=== PATIENT | male | born 1990 | race Caucasian/White ===

== ENCOUNTER 2020-01-16 17:22 | Emergency (ER) | payer MEDICAID ==
[2020-01-16 17:59] LABS: BASOPHILS % (AUTO) 0.4 % (0.0-5.0); EOSINOPHILS % (AUTO) 2.3 % (0.0-8.0); HEMATOCRIT 47.7 % (42-54); LYMPHOCYTES % (AUTO) 16.1 % (21.0-51.0); MEAN CORPUSCULAR HEMOGLOBIN 30.2 pg (27.0-33.0); MEAN CORPUSCULAR HGB CONC 34.2 g/dL (32.0-36.0); MEAN CORPUSCULAR VOLUME 88.3 fL (79-99); NEUTROPHILS % (AUTO) 75.9 % (40.0-77.0); PLATELET COUNT (AUTO) 247 K/uL (130-400); RED CELL DISTRIBUTION WIDTH 12.9 % (11.0-15.5); WHITE BLOOD COUNT (AUTO) 19.3 K/uL (4.8-10.8)
[2020-01-16 18:07] LABS: CREATININE 1.2 mg/dL (0.5-1.5); POTASSIUM 3.7 mmol/L (3.5-5.1)
[2020-01-16] MEDS ORDERED: KETOROLAC TROMETHAMINE 30MG/ML ONE (18:24)
[2020-01-16] MEDS ORDERED: DIAZEPAM 5 MG/ML 2 ML SYG ONE (18:25)
== END 2020-01-16 20:13 | disposition home or self-care (01) ==
LOC: EDH 17:22
DX: M62.838 Other muscle spasm (principal); Z90.49 Acquired absence of other specified parts of digestive tract; Z72.0 Tobacco use
CPT/HCPCS: 36415; 72040; 80048; 85025; 87804 ×2; 96374; 96375; 99284; J1885; J3360

== ENCOUNTER 2022-01-22 05:15 | Emergency (ER) | payer MEDICAID ==
[~2022-01-22] VITALS: Ht 182.9 cm; Wt 94.8 kg
[2022-01-22 05:33] VITALS: BP 122/92
[2022-01-22 05:39] LABS: BASOPHILS % (AUTO) 0.9 % (0.0-5.0); EOSINOPHILS % (AUTO) 9.5 % (0.0-8.0); HEMATOCRIT 44.3 % (42-54); LYMPHOCYTES % (AUTO) 29.1 % (21.0-51.0); MEAN CORPUSCULAR HEMOGLOBIN 30.9 pg (27.0-33.0); MEAN CORPUSCULAR VOLUME 88.4 fL (79-99); MONOCYTES % (AUTO) 6.2 % (3.0-13.0); PLATELET COUNT (AUTO) 225 K/uL (130-400); RED BLOOD CELL COUNT(AUTO) 5.01 MIL/uL (4.50-6.20); RED CELL DISTRIBUTION WIDTH 13.2 % (11.0-15.5); WHITE BLOOD COUNT (AUTO) 11.6 K/uL (4.8-10.8)
[2022-01-22 05:45] LABS: ABG BASE EXCESS -0.9 mmol/L (-2.0-3.0); ABG HCO3 23.2 mmol/L (21.0-28.0); ABG OXYGEN SATURATION 95.6 % (95.0-99.0); ABG PCO2 37 mmHg (35-48)
[2022-01-22 05:51] LABS: CREATININE 0.9 mg/dL (0.5-1.5); POTASSIUM 3.7 mmol/L (3.5-5.1)
[2022-01-22] MEDS ORDERED: GUAIFENESIN-CODEINE 5 ML SYRUP ONE (05:51)
[2022-01-22 05:55] LABS: ALBUMIN 3.9 g/dL (3.5-5.0); BILIRUBIN,TOTAL 0.4 mg/dL (0.2-1.0); MAGNESIUM 1.8 mg/dL (1.80-2.40); TOTAL PROTEIN, SERUM 7.1 g/dL (6.0-8.3)
[2022-01-22] MEDS ORDERED: SOLU-MEDROL 125MG VIAL IVP ONE (06:00)
[2022-01-22] MEDS ORDERED: GUAIFENESIN-CODEINE 5 ML SYRUP PO ONE (06:00)
[2022-01-22 06:04] LABS: B-TYPE NATRIURETIC PEPTIDE 9 pg/mL (0-100)
[2022-01-22] MEDS ORDERED: AZIT250T PO (06:49)
[2022-01-22] MEDS ORDERED: PRED20TA3 PO (06:49)
[2022-01-22] MEDS ORDERED: AZITHROMYCIN 250 MG TABLET PO SCH (07:00)
[2022-01-22] MEDS ORDERED: AZITHROMYCIN 250 MG TABLET PO ONE (07:08)
== END 2022-01-22 07:05 | disposition home or self-care (01) ==
LOC: EDH 05:15
DX: J20.9 Acute bronchitis, unspecified (principal); J44.0 Chronic obstructive pulmonary disease with (acute) lower respiratory infection; Z79.52 Long term (current) use of systemic steroids; Z90.49 Acquired absence of other specified parts of digestive tract; Z20.822 Contact with and (suspected) exposure to COVID-19
CPT/HCPCS: 36415; 36600; 71045; 80053; 82435; 82550; 82803; 82947; 83605; 83735; 83880; 84132; 84295; 84484; 85018; 85025; 87635; 87804 ×2; 93005; 96374; 99285; C9803; J2930

== ENCOUNTER 2023-07-01 09:29 | Inpatient (IN) | payer OTHER ==
[~2023-07-01] VITALS: Ht 182.9 cm; Wt 95.3 kg
[2023-07-01] VITALS (28 sets, daily range): BP systolic 98–121; BP diastolic 49–77; PULSE 104–131; RESP 12–34; O2SAT 78–100
[~2023-07-01 09:29] MED LIST: AZIT250T PO; PRED20TA3 PO
[2023-07-01 10:08] LABS: MEAN CORPUSCULAR HEMOGLOBIN 31.1 pg (27.0-33.0); MEAN CORPUSCULAR HGB CONC 34.5 g/dL (32.0-36.0); MEAN CORPUSCULAR VOLUME 90.2 fL (79-99); RED BLOOD CELL COUNT(AUTO) 5.21 MIL/uL (4.50-6.20); RED CELL DISTRIBUTION WIDTH 13.2 % (11.0-15.5); WHITE BLOOD COUNT (AUTO) 11.3 K/uL (4.8-10.8)
[2023-07-01] MEDS ORDERED: EPINEPHRINE PF 1MG (1:1,000) 1 MG/ML AMP ONE (10:23)
[2023-07-01 10:25] LABS: ALBUMIN 3.8 g/dL (3.5-5.0); BILIRUBIN,TOTAL 0.7 mg/dL (0.2-1.0); TOTAL PROTEIN, SERUM 7.5 g/dL (6.0-8.3)
[2023-07-01] MEDS ORDERED: DiphenhydrAMINE HCL 50 MG/ML VIAL ONE (10:25)
[2023-07-01] MEDS ORDERED: IPRATROPIUM/ALBUTEROL SULFATE 3 ML SOLUTION IH ONE ×2 (10:30→11:00)
[2023-07-01] MEDS ORDERED: SOLU-MEDROL 125MG VIAL IVP ONE (10:30)
[2023-07-01 10:38] LABS: ABG BASE EXCESS -12.2 mmol/L (-2.0-3.0); ABG HCO3 19.3 mmol/L (21.0-28.0); ABG OXYGEN SATURATION 99.1 % (95.0-99.0); ABG PCO2 71 mmHg (35-48); ABG PH 7.056 (7.350-7.450); PO2, ARTERIAL BG 239.3 mmHg (83.0-108.0); VENT MODE, BG BIPAP 14-6 (ROOM AIR)
[2023-07-01] MEDS: 0.9%NACL 1000ML 1,000 ML IV SCH ×4 (10:47→15:57)
[2023-07-01] MEDS ORDERED: MAGNESIUM 2GM PREMIX 50ML 50 ML IV ONE (11:00)
[2023-07-01] MEDS ORDERED: DiphenhydrAMINE HCL 50 MG/ML VIAL IV ONE (11:00)
[2023-07-01] MEDS ORDERED: EPINEPHRINE PF 1MG (1:1,000) 1 MG/ML AMP IM ONE (11:00)
[2023-07-01] MEDS ORDERED: FAMOTIDINE 20MG VIAL IV ONE (11:00)
[2023-07-01 11:19] LABS: SARS-CoV-2, RNA, NAAT NEGATIVE SARS CoV-2 (NEGATIVE)
[2023-07-01 11:25] LABS: INFLUENZA TYPE A Negative For Type A (NEGATIVE); INFLUENZA TYPE B Negative For Type B (NEGATIVE)
[2023-07-01 11:34] LABS: ABG BASE EXCESS -2.2 mmol/L (-2.0-3.0); ABG HCO3 23.6 mmol/L (21.0-28.0); ABG OXYGEN SATURATION 99.9 % (95.0-99.0); ABG PCO2 45 mmHg (35-48); ABG PH 7.343 (7.350-7.450); PO2, ARTERIAL BG > 500.0 mmHg (83.0-108.0); VENT MODE, BG BIPAP 14-6 (ROOM AIR)
[2023-07-01] MEDS: ONDANSETRON 4MG INJ ONE ×2 (11:48→11:50)
[2023-07-01] MEDS ORDERED: CEFTRIAXONE 1G VIAL IVPB ONE (12:00)
[2023-07-01] MEDS ORDERED: AZITHROMYCIN 500MG+NS 250ML 250 ML IVPB ONE (12:00)
[2023-07-01] MEDS ORDERED: BUDESONIDE 0.5 MG/2 ML INH IH SCH (12:30)
[2023-07-01] MEDS ORDERED: ONDANSETRON 4MG INJ IVP PRN ×2 (13:00→13:30)
[2023-07-01] MEDS ORDERED: IPRATROPIUM/ALBUTEROL SULFATE 3 ML SOLUTION IH PRN (13:00)
[2023-07-01] MEDS ORDERED: SOLU-MEDROL 40MG VIAL IVP SCH (13:30)
[2023-07-01 13:35] LABS: INR 0.94 (0.85-1.15); PROTHROMBIN TIME 10.9 SEC (9.6-11.6)
[2023-07-01 13:37] LABS: PARTIAL THROMBOPLASTIN TIME 27.2 SEC (26.3-35.5)
[2023-07-01 13:42] LABS: CREATINE KINASE, TOTAL 289 U/L (21-232)
[2023-07-01] MEDS: BUDESONIDE 0.5 MG/2 ML INH IH SCH ×2 (13:54→18:42)
[2023-07-01] MEDS: IPRATROPIUM/ALBUTEROL SULFATE 3 ML SOLUTION IH SCH ×4 (13:54→23:03)
[2023-07-01] MEDS: SOLU-MEDROL 40MG VIAL IVP SCH ×2 (14:46→20:53)
[2023-07-01 18:26] LABS: APPEARANCE,URINE CLEAR (CLEAR); BILIRUBIN,URINE NEGATIVE (NEGATIVE); COLOR,URINE LIGHT-YELLOW (YELLOW); GLUCOSE, URINE (UA) NEGATIVE (NEGATIVE); KETONES,URINE NEGATIVE (NEGATIVE); LEUKOCYTE ESTERASE ,URINE NEGATIVE Leu/uL (NEGATIVE); NITRATE,URINE NEGATIVE (NEGATIVE); PH,URINE 5.5 (5.0-8.0); PROTEIN,URINE 30 mg/dL (NEGATIVE); UROBILINOGEN,URINE 0.2 mg/dL (0.2-1.0)
[2023-07-01 18:31] LABS: ADD UA MICROSCOPIC YES
[2023-07-01 18:32] LABS: AMPHET/METH SCREEN,URINE NEGATIVE (NEGATIVE); BARBITURATE SCREEN, URINE NEGATIVE (NEGATIVE); BENZODIAZEPINES SCREEN,URINE NEGATIVE (NEGATIVE); CANNABINOID SCREEN,URINE NEGATIVE (NEGATIVE); COCAINE SCREEN,URINE NEGATIVE (NEGATIVE); OPIATE SCREEN,URINE NEGATIVE (NEGATIVE); PHENCYCLIDINE SCREEN,URINE NEGATIVE (NEGATIVE)
[2023-07-01 18:33] LABS: MUCUS,URINE RARE LPF (None Seen); WBC,URINE 0-1 /HPF (0-1)
[2023-07-01] MEDS ORDERED: IPRA3AMP24 IH (19:23)
[2023-07-01] MEDS ORDERED: ALBU6.7H14 IH (19:23)
[2023-07-01] MEDS: FAMOTIDINE 20MG VIAL IV SCH (20:52)
[2023-07-01] MEDS: CEFTRIAXONE 2GM VIAL IVPB SCH (20:53)
[2023-07-01] MEDS ORDERED: CEFTRIAXONE 1G VIAL IVPB SCH (21:00)
[2023-07-02] VITALS (28 sets, daily range): BP systolic 111–139; BP diastolic 49–86; PULSE 95–130; RESP 14–29; O2SAT 95–98
[2023-07-02] MEDS: GUAIFENESIN-DM 200/20 MG 10 ML PO PRN ×2 (01:19→09:23)
[2023-07-02] MEDS: IPRATROPIUM/ALBUTEROL SULFATE 3 ML SOLUTION IH SCH ×4 (01:48→13:45)
[2023-07-02] MEDS: SOLU-MEDROL 40MG VIAL IVP SCH ×3 (02:58→17:11)
[2023-07-02] MEDS: BENZONATATE 100 MG CAPSULE PO SCH ×4 (03:30→21:01)
[2023-07-02] MEDS ORDERED: BENZONATATE 100 MG CAPSULE PO ONE (03:32)
[2023-07-02 04:43] LABS: BASOPHILS # (AUTO) 0.03 K/uL (0.00-0.20); BASOPHILS % (AUTO) 0.2 % (0.0-5.0); HEMATOCRIT 42.6 % (42-54); IMMATURE GRANULOCYTE ABSOLUTE 0.11 K/uL (0-1); LYMPHOCYTES # (AUTO) 0.9 K/uL (1.0-4.8); LYMPHOCYTES % (AUTO) 4.8 % (21.0-51.0); MEAN CORPUSCULAR HEMOGLOBIN 31.5 pg (27.0-33.0); MEAN CORPUSCULAR HGB CONC 33.8 g/dL (32.0-36.0); MEAN CORPUSCULAR VOLUME 93.2 fL (79-99); MONOCYTES # (AUTO) 0.4 K/uL (0.1-1.0); MONOCYTES % (AUTO) 2.1 % (3.0-13.0); NEUTROPHILS # (AUTO) 17.5 K/uL (1.8-7.7); NEUTROPHILS % (AUTO) 92.3 % (40.0-77.0); PLATELET COUNT (AUTO) 239 K/uL (130-400); RED BLOOD CELL COUNT(AUTO) 4.57 MIL/uL (4.50-6.20); RED CELL DISTRIBUTION WIDTH 13.2 % (11.0-15.5)
[2023-07-02 05:22] LABS: ALBUMIN 3.1 g/dL (3.5-5.0); BILIRUBIN,DIRECT 0.1 mg/dL (0.0-0.3); BILIRUBIN,TOTAL 0.3 mg/dL (0.2-1.0); CREATININE 1.1 mg/dL (0.5-1.5); POTASSIUM 4.1 mmol/L (3.5-5.1); TOTAL PROTEIN, SERUM 6.5 g/dL (6.0-8.3)
[2023-07-02] MEDS: BUDESONIDE 0.5 MG/2 ML INH IH SCH ×2 (06:10→19:01)
[2023-07-02 06:17] LABS: WBC MORPHOLOGY CONSISTENT W/DIFF
[2023-07-02] MEDS: AZITHROMYCIN 250 MG TABLET PO SCH (09:25)
[2023-07-02] MEDS: CETIRIZINE HCL 5 MG TABLET PO SCH (09:25)
[2023-07-02] MEDS: FAMOTIDINE 20MG VIAL IV SCH (09:25)
[2023-07-02] MEDS: MONTELUKAST SODIUM 10 MG TAB PO SCH (09:25)
[2023-07-02] MEDS: 0.9%NACL 1000ML 1,000 ML IV SCH ×2 (09:27→09:35)
[2023-07-02] MEDS: ENOXAPARIN SODIUM 40 MG/0.4 ML SYRINGE SQ SCH (09:30)
[2023-07-02] MEDS ORDERED: IPRATROPIUM 0.5 MG/2.5 ML INH IH PRN (18:00)
[2023-07-02] MEDS ORDERED: ONDANSETRON 4MG TABLET PO PRN (19:00)
[2023-07-02] MEDS: IPRATROPIUM 0.5 MG/2.5 ML INH IH SCH ×2 (19:01→23:17)
[2023-07-02] MEDS: FAMOTIDINE 20MG TAB PO SCH (21:01)
[2023-07-02] MEDS: CEFTRIAXONE 2GM VIAL IVPB SCH (21:01)
[2023-07-03] VITALS (21 sets, daily range): BP systolic 100–127; BP diastolic 53–97; PULSE 64–104; RESP 17–23; O2SAT 92–96
[2023-07-03] MEDS: SOLU-MEDROL 40MG VIAL IVP SCH ×3 (02:59→17:47)
[2023-07-03] MEDS: IPRATROPIUM 0.5 MG/2.5 ML INH IH SCH ×6 (03:25→21:25)
[2023-07-03] MEDS: BUDESONIDE 0.5 MG/2 ML INH IH SCH ×2 (06:20→18:59)
[2023-07-03] MEDS: BENZONATATE 100 MG CAPSULE PO SCH ×3 (10:25→21:18)
[2023-07-03] MEDS: CETIRIZINE HCL 5 MG TABLET PO SCH (10:25)
[2023-07-03] MEDS: AZITHROMYCIN 250 MG TABLET PO SCH (10:26)
[2023-07-03] MEDS: MONTELUKAST SODIUM 10 MG TAB PO SCH (10:26)
[2023-07-03] MEDS: FAMOTIDINE 20MG TAB PO SCH ×2 (10:26→21:18)
[2023-07-03] MEDS: ENOXAPARIN SODIUM 40 MG/0.4 ML SYRINGE SQ SCH (10:27)
[2023-07-03] MEDS: GUAIFENESIN-DM 200/20 MG 10 ML PO PRN ×2 (17:47→23:30)
[2023-07-03] MEDS: CEFTRIAXONE 2GM VIAL IVPB SCH (21:19)
[2023-07-04] VITALS (11 sets, daily range): BP systolic 118–126; BP diastolic 23–76; PULSE 71–96; RESP 18–20; O2SAT 93–98
[2023-07-04] MEDS: SOLU-MEDROL 40MG VIAL IVP SCH ×2 (00:09→09:32)
[2023-07-04] MEDS: IPRATROPIUM 0.5 MG/2.5 ML INH IH SCH ×4 (01:57→13:33)
[2023-07-04] MEDS: BUDESONIDE 0.5 MG/2 ML INH IH SCH (06:46)
[2023-07-04] MEDS: FAMOTIDINE 20MG TAB PO SCH (09:31)
[2023-07-04] MEDS: ENOXAPARIN SODIUM 40 MG/0.4 ML SYRINGE SQ SCH (09:31)
[2023-07-04] MEDS: AZITHROMYCIN 250 MG TABLET PO SCH (09:31)
[2023-07-04] MEDS: MONTELUKAST SODIUM 10 MG TAB PO SCH (09:31)
[2023-07-04] MEDS: BENZONATATE 100 MG CAPSULE PO SCH ×2 (09:31→14:24)
[2023-07-04] MEDS: CETIRIZINE HCL 5 MG TABLET PO SCH (09:32)
[2023-07-04] MEDS ORDERED: ACETAMINOPHEN 325 MG TAB PO PRN (13:30)
== END 2023-07-04 16:40 | disposition left against medical advice (07) | DRG 871 ==
LOC: EDH 09:29 → EDHIP 12:18 → 2CH 14:59 → 3DH 07-03 08:22
PROVIDERS: ADMIT Internal Medicine; ATTEND Internal Medicine
PROC: 5A09357 Assistance with Respiratory Ventilation, Less than 24 Consecutive Hours, Continuous Positive Airway Pressure (ICD-10-PCS; principal; 2023-07-01)
DX: A41.9 Sepsis, unspecified organism (principal); J96.01 Acute respiratory failure with hypoxia; J96.02 Acute respiratory failure with hypercapnia; J45.52 Severe persistent asthma with status asthmaticus; J44.1 Chronic obstructive pulmonary disease with (acute) exacerbation; E87.29 Other acidosis; Z20.822 Contact with and (suspected) exposure to COVID-19; F17.210 Nicotine dependence, cigarettes, uncomplicated; E86.0 Dehydration; Z90.49 Acquired absence of other specified parts of digestive tract
CPT/HCPCS: 36415; 36600; 71045; 80048; 80053; 80076; 80305; 81001; 82103; 82550; 82803; 83605; 83735; 84145; 84484; 85025; 85027; 85378; 85610; 85651; 85730; 86140; 87040; 87635; 87798; 87804; 93005; 94640; 94660; 94664; C9803; G0378; J0171; J0456; J0696; J1200; J1650; J2405; J2920; J2930; J3475; J3490

== ENCOUNTER 2023-10-10 06:07 | Inpatient (IN) | payer OTHER ==
[2023-10-10] VITALS (65 sets, daily range): BP systolic 89–148; BP diastolic 51–95; PULSE 94–146; RESP 17–66; O2SAT 94–100
[~2023-10-10] VITALS: Ht 182.9 cm; Wt 90.0 kg
[~2023-10-10 06:07] MED LIST changes: +ALBU6.7H14 IH; +IPRA3AMP24 IH
[2023-10-10 06:26] LABS: BASOPHILS # (AUTO) 0.07 K/uL (0.00-0.20); BASOPHILS % (AUTO) 0.5 % (0.0-5.0); EOSINOPHILS # (AUTO) 0.11 K/uL (0.00-0.70); EOSINOPHILS % (AUTO) 0.8 % (0.0-8.0); HEMATOCRIT 42.7 % (42-54); IMMATURE GRANULOCYTE ABSOLUTE 0.07 K/uL (0-1); LYMPHOCYTES # (AUTO) 0.5 K/uL (1.0-4.8); LYMPHOCYTES % (AUTO) 3.9 % (21.0-51.0); MEAN CORPUSCULAR HEMOGLOBIN 30.7 pg (27.0-33.0); MEAN CORPUSCULAR HGB CONC 34.7 g/dL (32.0-36.0); MEAN CORPUSCULAR VOLUME 88.6 fL (79-99); MONOCYTES # (AUTO) 0.9 K/uL (0.1-1.0); MONOCYTES % (AUTO) 6.3 % (3.0-13.0); PLATELET COUNT (AUTO) 235 K/uL (130-400); RED BLOOD CELL COUNT(AUTO) 4.82 MIL/uL (4.50-6.20); RED CELL DISTRIBUTION WIDTH 13.3 % (11.0-15.5); WHITE BLOOD COUNT (AUTO) 13.6 K/uL (4.8-10.8)
[2023-10-10] MEDS: SOLU-MEDROL 125MG VIAL IVP ONE (06:30)
[2023-10-10] MEDS: ASPIRIN 325MG TAB PO ONE (06:30)
[2023-10-10] MEDS ORDERED: MAGNESIUM 2GM PREMIX 50ML 50 ML IV SCH (06:30)
[2023-10-10] MEDS: NITROGLYCERIN 1GM OINT 1 INCH/1GM TD ONE (06:30)
[2023-10-10] MEDS: ENOXAPARIN SODIUM 40 MG/0.4 ML SYRINGE SQ ONE (06:30)
[2023-10-10] MEDS: IPRATROPIUM/ALBUTEROL SULFATE 3 ML SOLUTION IH ONE (06:39)
[2023-10-10 06:44] LABS: RAPID GROUP A STREP negative (NEGATIVE)
[2023-10-10 06:47] LABS: ABG BASE EXCESS -1.3 mmol/L (-2.0-3.0); ABG HCO3 22.8 mmol/L (21.0-28.0); ABG OXYGEN SATURATION 97.3 % (95.0-99.0); ABG PCO2 37 mmHg (35-48); ABG PH 7.412 (7.350-7.450); PO2, ARTERIAL BG 94.3 mmHg (83.0-108.0); VENT MODE, BG MASK (ROOM AIR)
[2023-10-10 06:52] LABS: SARS-CoV-2, RNA, NAAT NEGATIVE SARS CoV-2 (NEGATIVE)
[2023-10-10 06:54] LABS: INFLUENZA TYPE B Negative For Type B (NEGATIVE)
[2023-10-10 06:56] LABS: ALBUMIN 3.8 g/dL (3.5-5.0); BILIRUBIN,TOTAL 0.5 mg/dL (0.2-1.0); CREATININE 1.1 mg/dL (0.5-1.5); POTASSIUM 3.6 mmol/L (3.5-5.1); TOTAL PROTEIN, SERUM 7.4 g/dL (6.0-8.3)
[2023-10-10 07:22] LABS: INFLUENZA TYPE A Positive For Type A (NEGATIVE)
[2023-10-10] MEDS: ALBUTEROL 0.083% 2.5 MG/3 ML INH IH ONE ×4 (07:26→07:50)
[2023-10-10] MEDS ORDERED: ALBUTEROL 0.083% 2.5 MG/3 ML INH IH ONE ×2 (07:30)
[2023-10-10] MEDS: IBUPROFEN 600 MG TABLET PO ONE (07:31)
[2023-10-10 07:36] LABS: B-TYPE NATRIURETIC PEPTIDE 9 pg/mL (0-100)
[2023-10-10 08:27] LABS: ABG HCO3 22.5 mmol/L (21.0-28.0); ABG OXYGEN SATURATION 98.9 % (95.0-99.0); ABG PCO2 42 mmHg (35-48); ABG PH 7.349 (7.350-7.450); HHb 1.1; PO2, ARTERIAL BG 151.6 mmHg (83.0-108.0); VENT MODE, BG BIPAP 14-7 (ROOM AIR)
[2023-10-10] MEDS: LORAZEPAM 2 MG/ML 1 ML VIAL IVP ONE (09:02)
[2023-10-10 09:21] LABS: APPEARANCE,URINE CLEAR (CLEAR); BILIRUBIN,URINE NEGATIVE (NEGATIVE); COLOR,URINE YELLOW (YELLOW); GLUCOSE, URINE (UA) NEGATIVE (NEGATIVE); KETONES,URINE NEGATIVE (NEGATIVE); LEUKOCYTE ESTERASE ,URINE NEGATIVE Leu/uL (NEGATIVE); NITRATE,URINE NEGATIVE (NEGATIVE); OCCULT BLOOD,URINE SMALL (NEGATIVE); PH,URINE 5.5 (5.0-8.0); PROTEIN,URINE NEGATIVE (NEGATIVE); UROBILINOGEN,URINE 0.2 mg/dL (0.2-1.0)
[2023-10-10] MEDS: SOLU-MEDROL 125MG VIAL IVP SCH (09:30)
[2023-10-10 09:34] LABS: ADD UA MICROSCOPIC YES
[2023-10-10 09:37] LABS: BACTERIA,URINE None Seen /HPF (None Seen); WBC,URINE 0-1 /HPF (0-1)
[2023-10-10] MEDS: AZITHROMYCIN 500MG+NS 250ML 250 ML IVPB SCH (10:22)
[2023-10-10] MEDS: LACTATED RINGERS 1000ML 1,000 ML IV SCH (10:22)
[2023-10-10] MEDS: DEXMEDETOMIDINE 400MCG/NS100ML IV SCH (11:02)
[2023-10-10] MEDS: IPRATROPIUM/ALBUTEROL SULFATE 3 ML SOLUTION IH SCH (11:31)
[2023-10-10] MEDS ORDERED: IPRATROPIUM/ALBUTEROL SULFATE 3 ML SOLUTION IH SCH (12:00)
[2023-10-10 12:51] LABS: AMPHET/METH SCREEN,URINE NEGATIVE (NEGATIVE); BARBITURATE SCREEN, URINE NEGATIVE (NEGATIVE); BENZODIAZEPINES SCREEN,URINE NEGATIVE (NEGATIVE); CANNABINOID SCREEN,URINE NEGATIVE (NEGATIVE); COCAINE SCREEN,URINE NEGATIVE (NEGATIVE); OPIATE SCREEN,URINE NEGATIVE (NEGATIVE); PHENCYCLIDINE SCREEN,URINE NEGATIVE (NEGATIVE)
[2023-10-10] MEDS: MORPHINE 2 MG SYG IVP PRN (12:58)
[2023-10-10] MEDS: ZOSYN 3.375GM +NS 50ML IV SCH (12:58)
[2023-10-10] MEDS: SOLU-MEDROL 40MG VIAL IVP SCH (12:58)
[2023-10-10] MEDS: MIDAZOLAM HCL 1 MG/ML 2ML VIAL ONE (13:16)
[2023-10-10] MEDS: MIDAZOLAM HCL 1 MG/ML 2ML VIAL IVP STA (13:16)
[2023-10-10] MEDS: MIDAZOLAM 50MG-0.9% NS 50ML 50 ML IV SCH ×2 (13:29→19:57)
[2023-10-10] MEDS ORDERED: MIDAZOLAM HCL 50 MG in 0.9%NACL 50ML 50 ML IV SCH (13:30)
[2023-10-10 14:01] LABS: ABG BASE EXCESS -6.3 mmol/L (-2.0-3.0); ABG HCO3 23.6 mmol/L (21.0-28.0); ABG OXYGEN SATURATION 97.5 % (95.0-99.0); ABG PCO2 67 mmHg (35-48); ABG PH 7.165 (7.350-7.450); CARBON MONOXIDE 0.5; HHb 2.5; PO2, ARTERIAL BG 116.3 mmHg (83.0-108.0); VENT MODE, BG AC-VC (ROOM AIR)
[2023-10-10] MEDS: FENTANYL 2500MCG+NS 250ML 250 ML IV SCH (14:14)
[2023-10-10 16:30] LABS: ABG BASE EXCESS -6.7 mmol/L (-2.0-3.0); ABG HCO3 22.4 mmol/L (21.0-28.0); ABG OXYGEN SATURATION 98.7 % (95.0-99.0); ABG PCO2 60 mmHg (35-48); CARBON MONOXIDE 0.4; HHb 1.3; PO2, ARTERIAL BG 150.9 mmHg (83.0-108.0); VENT MODE, BG PC-AC IP28 (ROOM AIR)
[2023-10-10] MEDS: SODIUM BICARB 50MEQ 50ML VIAL IV SCH (17:00)
[2023-10-10] MEDS: SODIUM BICARB 50MEQ 50ML VIAL 100 ML ONE (17:03)
[2023-10-10 17:38] LABS: ALBUMIN 3.3 g/dL (3.5-5.0); BILIRUBIN,TOTAL 0.4 mg/dL (0.2-1.0); CREATININE 1.2 mg/dL (0.5-1.5); TOTAL PROTEIN, SERUM 6.4 g/dL (6.0-8.3)
[2023-10-10 17:43] LABS: POTASSIUM 6.5 mmol/L (3.5-5.1)
[2023-10-10] MEDS: KAYEXALATE 15GM/60ML NG ONE (18:25)
[2023-10-10] MEDS: DEXTROSE 50%-WATER 50 ML DISP.SYRIN IV ONE (18:25)
[2023-10-10] MEDS: INSULIN HUMULIN R 100 UNIT/ML 3ML IV ONE (18:26)
[2023-10-10] MEDS: BUDESONIDE 0.5 MG/2 ML INH IH SCH (18:41)
[2023-10-10 18:49] LABS: ABG BASE EXCESS -0.1 mmol/L (-2.0-3.0); ABG HCO3 29.6 mmol/L (21.0-28.0); ABG PCO2 73 mmHg (35-48); ABG PH 7.224 (7.350-7.450); CARBON MONOXIDE 0.4; DEVICE COMMENT RN,AL; PO2, ARTERIAL BG 102.4 mmHg (83.0-108.0); VENT MODE, BG PC 25 (ROOM AIR)
[2023-10-10] MEDS: CALCIUM GLUC 1GM 1 GM in 0.9%NACL 100ML 100 ML IV SCH (18:56)
[2023-10-10 20:36] LABS: INR <= 0.93 (0.85-1.15); PROTHROMBIN TIME 10.6 SEC (9.6-11.6)
[2023-10-10 20:37] LABS: PARTIAL THROMBOPLASTIN TIME 23.7 SEC (26.3-35.5)
[2023-10-10] MEDS: ROCURONIUM BROMIDE 100 MG in 0.9%NACL 100ML 100 ML IV SCH (20:56)
[2023-10-10] MEDS: PANTOPRAZOLE 40 MG/VIAL IVP SCH (22:01)
[2023-10-10] MEDS: OSELTAMIVIR PHOSPHATE 75 MG CAP PO SCH (22:01)
[2023-10-10] MEDS: NACL 0.9% IV SCH (22:22)
[2023-10-10] MEDS: ROCURONIUM BROMIDE IV SCH (22:22)
[2023-10-10 22:29] LABS: ABG BASE EXCESS 0.7 mmol/L (-2.0-3.0); ABG HCO3 30.3 mmol/L (21.0-28.0); ABG OXYGEN SATURATION 99.5 % (95.0-99.0); ABG PCO2 73 mmHg (35-48); ABG PH 7.235 (7.350-7.450); CARBON MONOXIDE 0.4; HHb 0.5; VENT MODE, BG ACVC (ROOM AIR)
[2023-10-10] MEDS: KAYEXALATE 15GM/60ML PO SCH (23:20)
[2023-10-11] VITALS (107 sets, daily range): BP systolic 94–134; BP diastolic 53–77; PULSE 62–104; RESP 9–26; O2SAT 93–99
[2023-10-11] MEDS: PHENYLEPHRINE HCL 10 MG in 0.9% NACL 250ML 250 ML IV PRN (02:20)
[2023-10-11] MEDS ORDERED: PHENYLEPHRINE HCL 50 MG in 0.9% NACL 250ML 245 ML IV PRN (03:00)
[2023-10-11] MEDS ORDERED: NACL 0.9% IV PRN (03:00)
[2023-10-11] MEDS ORDERED: PHENYLEPHRINE HCL IV PRN (03:00)
[2023-10-11] MEDS: PHENYLEPHRINE HCL 10 MG/ML 5ML VIAL IV ONE ×2 (03:15)
[2023-10-11 03:24] LABS: ABG BASE EXCESS 2.8 mmol/L (-2.0-3.0); ABG HCO3 28.7 mmol/L (21.0-28.0); ABG OXYGEN SATURATION 99.6 % (95.0-99.0); ABG PCO2 49 mmHg (35-48); ABG PH 7.384 (7.350-7.450); CARBON MONOXIDE 0.3; HHb 0.4; PO2, ARTERIAL BG 409.2 mmHg (83.0-108.0); VENT MODE, BG ACVC (ROOM AIR)
[2023-10-11 05:21] LABS: BASOPHILS # (AUTO) 0.01 K/uL (0.00-0.20); BASOPHILS % (AUTO) 0.1 % (0.0-5.0); HEMATOCRIT 39.5 % (42-54); IMMATURE GRANULOCYTE ABSOLUTE 0.05 K/uL (0-1); LYMPHOCYTES # (AUTO) 0.5 K/uL (1.0-4.8); LYMPHOCYTES % (AUTO) 3.7 % (21.0-51.0); MEAN CORPUSCULAR HEMOGLOBIN 30.9 pg (27.0-33.0); MEAN CORPUSCULAR HGB CONC 32.9 g/dL (32.0-36.0); MEAN CORPUSCULAR VOLUME 93.8 fL (79-99); MONOCYTES # (AUTO) 0.8 K/uL (0.1-1.0); MONOCYTES % (AUTO) 5.4 % (3.0-13.0); NEUTROPHILS # (AUTO) 13.3 K/uL (1.8-7.7); NEUTROPHILS % (AUTO) 90.5 % (40.0-77.0); PLATELET COUNT (AUTO) 189 K/uL (130-400); RED BLOOD CELL COUNT(AUTO) 4.21 MIL/uL (4.50-6.20); RED CELL DISTRIBUTION WIDTH 13.7 % (11.0-15.5); WHITE BLOOD COUNT (AUTO) 14.7 K/uL (4.8-10.8)
[2023-10-11 05:22] LABS: CREATININE 1.1 mg/dL (0.5-1.5); POTASSIUM 4.5 mmol/L (3.5-5.1)
[2023-10-11] MEDS: 0.9%NACL 10ML VIAL IV SCH (08:20)
[2023-10-11 08:24] LABS: ABG BASE EXCESS 4.5 mmol/L (-2.0-3.0); ABG HCO3 28.9 mmol/L (21.0-28.0); ABG OXYGEN SATURATION 96.6 % (95.0-99.0); ABG PCO2 42 mmHg (35-48); ABG PH 7.453 (7.350-7.450); CARBON MONOXIDE 0.3; HHb 3.4; PO2, ARTERIAL BG 80.7 mmHg (83.0-108.0)
[2023-10-11] MEDS: PANTOPRAZOLE 40MG INJ 80 MG in 0.9%NACL 100ML 100 ML IV SCH (08:26)
[2023-10-11] MEDS: DEXTROSE 5 %-0.45 % NACL 1,000 ML IV SCH (08:26)
[2023-10-11] MEDS: OCTREOTIDE ACETATE 1,250 MCG in 0.9% NACL 250ML 250 ML IV SCH (08:34)
[2023-10-11] MEDS ORDERED: FAMOTIDINE 20MG VIAL IV SCH (09:00)
[2023-10-11] MEDS ORDERED: COMPOUND IV REFRIGERATED 1 EACH IVSOLN MISC PRN (11:30)
[2023-10-11 11:59] LABS: HEMATOCRIT 36.3 % (42-54)
[2023-10-11] MEDS: IPRATROPIUM/ALBUTEROL SULFATE 3 ML SOLUTION IH SCH (14:37)
[2023-10-11 16:13] LABS: HEMATOCRIT 35.6 % (42-54)
[2023-10-11 22:44] LABS: HEMATOCRIT 36.1 % (42-54)
[2023-10-12] VITALS (110 sets, daily range): BP systolic 111–171; BP diastolic 59–101; PULSE 49–89; RESP 11–31; O2SAT 92–100
[2023-10-12 03:09] LABS: HEMATOCRIT 36.3 % (42-54); MEAN CORPUSCULAR HEMOGLOBIN 30.9 pg (27.0-33.0); MEAN CORPUSCULAR HGB CONC 32.8 g/dL (32.0-36.0); MEAN CORPUSCULAR VOLUME 94.3 fL (79-99); RED BLOOD CELL COUNT(AUTO) 3.85 MIL/uL (4.50-6.20); RED CELL DISTRIBUTION WIDTH 13.8 % (11.0-15.5); WHITE BLOOD COUNT (AUTO) 11.7 K/uL (4.8-10.8)
[2023-10-12 03:27] LABS: ALBUMIN 2.6 g/dL (3.5-5.0); BILIRUBIN,TOTAL 0.3 mg/dL (0.2-1.0); MAGNESIUM 2.3 mg/dL (1.80-2.40); POTASSIUM 4.3 mmol/L (3.5-5.1); TOTAL PROTEIN, SERUM 5.6 g/dL (6.0-8.3)
[2023-10-12 09:49] LABS: ABG HCO3 26.8 mmol/L (21.0-28.0); ABG OXYGEN SATURATION 97.4 % (95.0-99.0); ABG PCO2 42 mmHg (35-48); CARBON MONOXIDE 0.3; HHb 2.6; PO2, ARTERIAL BG 106.2 mmHg (83.0-108.0); VENT MODE, BG AC (ROOM AIR)
[2023-10-12] MEDS: ONDANSETRON 4MG INJ ONE (11:54)
[2023-10-12] MEDS ORDERED: ONDANSETRON 4MG INJ IVP PRN (12:00)
[2023-10-12] MEDS: FUROSEMIDE 40MG VIAL IV STA (14:57)
[2023-10-12] MEDS: DOXYCYCLINE 100MG+NS 250ML 250 ML IV SCH (17:11)
[2023-10-12 17:29] LABS: ABG BASE EXCESS 6.5 mmol/L (-2.0-3.0); ABG HCO3 32.1 mmol/L (21.0-28.0); ABG OXYGEN SATURATION 89.6 % (95.0-99.0); ABG PCO2 49 mmHg (35-48); ABG PH 7.432 (7.350-7.450); PO2, ARTERIAL BG 55.8 mmHg (83.0-108.0); VENT MODE, BG AC (ROOM AIR)
[2023-10-12] MEDS ORDERED: EPINEPH PF 1MG (1:1,000) RESP. 1 MG/ML AMP IH PRN (18:30)
[2023-10-12] MEDS ORDERED: EPINEPH PF 1MG (1:1,000) RESP. 1 MG/ML AMP IH SCH (18:30)
[2023-10-12] MEDS: EPINEPH PF 1MG (1:1,000) RESP. 1 MG/ML AMP IH ONE (18:47)
[2023-10-12] MEDS: ROCURONIUM BROMIDE 100 MG in 0.9%NACL 100ML 100 ML IV SCH (20:06)
[2023-10-12] MEDS: FUROSEMIDE 40MG VIAL IV SCH (20:31)
[2023-10-12] MEDS: PANTOPRAZOLE 40 MG/VIAL IVP SCH (20:31)
[2023-10-12 20:42] LABS: ABG BASE EXCESS 4.5 mmol/L (-2.0-3.0); ABG HCO3 29.1 mmol/L (21.0-28.0); ABG OXYGEN SATURATION 90.8 % (95.0-99.0); ABG PCO2 43 mmHg (35-48); ABG PH 7.447 (7.350-7.450); CARBON MONOXIDE 0.1; HHb 9.2; PO2, ARTERIAL BG 60.1 mmHg (83.0-108.0); VENT MODE, BG ACVC (ROOM AIR)
[2023-10-12 22:22] LABS: ABG BASE EXCESS 6.9 mmol/L (-2.0-3.0); ABG OXYGEN SATURATION 99.3 % (95.0-99.0); ABG PCO2 53 mmHg (35-48); ABG PH 7.412 (7.350-7.450); CARBON MONOXIDE 0.3; HHb 0.7; VENT MODE, BG ACVC (ROOM AIR)
[2023-10-13] VITALS (92 sets, daily range): BP systolic 55–300; BP diastolic 19–300; PULSE 47–105; RESP 12–35; O2SAT 95–100
[2023-10-13 03:10] LABS: ABG BASE EXCESS 6.2 mmol/L (-2.0-3.0); ABG HCO3 28.8 mmol/L (21.0-28.0); ABG OXYGEN SATURATION 98.7 % (95.0-99.0); ABG PCO2 35 mmHg (35-48); ABG PH 7.535 (7.350-7.450); CARBON MONOXIDE 0; HHb 1.3; PO2, ARTERIAL BG 138.4 mmHg (83.0-108.0); VENT MODE, BG ACVC (ROOM AIR)
[2023-10-13 04:29] LABS: HEMATOCRIT 36.9 % (42-54); MEAN CORPUSCULAR HEMOGLOBIN 30.6 pg (27.0-33.0); MEAN CORPUSCULAR HGB CONC 33.9 g/dL (32.0-36.0); MEAN CORPUSCULAR VOLUME 90.4 fL (79-99); RED BLOOD CELL COUNT(AUTO) 4.08 MIL/uL (4.50-6.20); RED CELL DISTRIBUTION WIDTH 13.3 % (11.0-15.5); WHITE BLOOD COUNT (AUTO) 13.8 K/uL (4.8-10.8)
[2023-10-13 04:43] LABS: ALBUMIN 2.8 g/dL (3.5-5.0); BILIRUBIN,TOTAL 0.4 mg/dL (0.2-1.0); CREATININE 0.9 mg/dL (0.5-1.5); MAGNESIUM 2.4 mg/dL (1.80-2.40); POTASSIUM 3.8 mmol/L (3.5-5.1)
[2023-10-13] MEDS: IPRATROPIUM 0.5 MG/2.5 ML INH IH ONE (06:20)
[2023-10-13] MEDS: ALBUTEROL 0.083% 2.5 MG/3 ML INH IH ONE (06:21)
[2023-10-13] MEDS ORDERED: KCL 20 MEQ ERTAB PO PRN (06:30)
[2023-10-13] MEDS: POTASSIUM CHLORIDE 20MEQ/100ML 100 ML IV PRN (06:31)
[2023-10-14] VITALS (42 sets, daily range): BP systolic 111–148; BP diastolic 58–89; PULSE 61–103; RESP 14–24; O2SAT 93–97
[2023-10-14 05:38] LABS: BASOPHILS # (AUTO) 0.01 K/uL (0.00-0.20); BASOPHILS % (AUTO) 0.1 % (0.0-5.0); EOSINOPHILS # (AUTO) 0.01 K/uL (0.00-0.70); EOSINOPHILS % (AUTO) 0.1 % (0.0-8.0); HEMATOCRIT 41.3 % (42-54); IMMATURE GRANULOCYTE ABSOLUTE 0.09 K/uL (0-1); LYMPHOCYTES # (AUTO) 1.5 K/uL (1.0-4.8); LYMPHOCYTES % (AUTO) 9.6 % (21.0-51.0); MEAN CORPUSCULAR HEMOGLOBIN 30.7 pg (27.0-33.0); MEAN CORPUSCULAR HGB CONC 34.4 g/dL (32.0-36.0); MEAN CORPUSCULAR VOLUME 89.4 fL (79-99); MONOCYTES # (AUTO) 0.8 K/uL (0.1-1.0); NEUTROPHILS # (AUTO) 12.8 K/uL (1.8-7.7); NEUTROPHILS % (AUTO) 84.6 % (40.0-77.0); PLATELET COUNT (AUTO) 246 K/uL (130-400); RED BLOOD CELL COUNT(AUTO) 4.62 MIL/uL (4.50-6.20); RED CELL DISTRIBUTION WIDTH 12.9 % (11.0-15.5); WHITE BLOOD COUNT (AUTO) 15.2 K/uL (4.8-10.8)
[2023-10-14 05:59] LABS: BILIRUBIN,TOTAL 0.7 mg/dL (0.2-1.0); CREATININE 0.8 mg/dL (0.5-1.5); MAGNESIUM 2.3 mg/dL (1.80-2.40); POTASSIUM 3.7 mmol/L (3.5-5.1); TOTAL PROTEIN, SERUM 6.6 g/dL (6.0-8.3)
[2023-10-14] MEDS: POTASSIUM CHLORIDE 10% ELIXIR 20 MEQ/15 ML UDCUP PO PRN (07:54)
[2023-10-14] MEDS: MAGNESIUM 2GM PREMIX 50ML 50 ML IV SCH (10:46)
[2023-10-14] MEDS: LORATADINE 10 MG TABLET PO ONE (10:47)
[2023-10-14] MEDS: FAMOTIDINE 20MG TAB PO ONE (10:47)
[2023-10-14] MEDS: D5W-1/2 NS/20MEQ KCL 1,000 ML IV ONE (12:06)
[2023-10-14] MEDS: SOLU-MEDROL 40MG VIAL IVP SCH (16:37)
[2023-10-14] MEDS: LACTULOSE 20 GM/30 ML UDCUP PO ONE (16:38)
[2023-10-14] MEDS: POLYETHYLENE GLYCOL 3350 17 GM POWD.PACK PO SCH (16:38)
[2023-10-14] MEDS: LACTULOSE 20 GM/30 ML UDCUP ONE (16:39)
[2023-10-14] MEDS: POLYETHYLENE GLYCOL 3350 17 GM POWD.PACK ONE (16:39)
[2023-10-14] MEDS: FAMOTIDINE 20MG TAB PO SCH (20:08)
[2023-10-14] MEDS: GUAIFENESIN-CODEINE 5 ML SYRUP PO PRN (23:12)
[2023-10-14] MEDS: ACETAMINOPHEN 325 MG TAB PO PRN (23:13)
[2023-10-15] VITALS (26 sets, daily range): BP systolic 104–129; BP diastolic 47–81; PULSE 61–92; RESP 12–23; O2SAT 94–96
[2023-10-15 04:42] LABS: HEMATOCRIT 42.5 % (42-54); MEAN CORPUSCULAR HGB CONC 34.1 g/dL (32.0-36.0); MEAN CORPUSCULAR VOLUME 90.8 fL (79-99); RED BLOOD CELL COUNT(AUTO) 4.68 MIL/uL (4.50-6.20); WHITE BLOOD COUNT (AUTO) 13.9 K/uL (4.8-10.8)
[2023-10-15 04:59] LABS: ALBUMIN 3.1 g/dL (3.5-5.0); BILIRUBIN,TOTAL 0.8 mg/dL (0.2-1.0); CREATININE 0.9 mg/dL (0.5-1.5); MAGNESIUM 2.2 mg/dL (1.80-2.40); PHOSPHORUS 4.4 mg/dL (2.5-4.9); POTASSIUM 3.7 mmol/L (3.5-5.1); TOTAL PROTEIN, SERUM 6.7 g/dL (6.0-8.3)
[2023-10-15] MEDS: LORATADINE 10 MG TABLET PO SCH (09:12)
[2023-10-15] MEDS ORDERED: MONT-39 PO (16:00)
[2023-10-15] MEDS ORDERED: DOXY100C5 PO (16:00)
[2023-10-15] MEDS ORDERED: LORA10TA7 PO (16:00)
[2023-10-15] MEDS ORDERED: FLUT1DIS5 IH (16:00)
[2023-10-15] MEDS ORDERED: TIOT18CA3 IH (16:00)
[2023-10-15] MEDS ORDERED: ALBUHFA IH (16:00)
[2023-10-15] MEDS: ACETAMINOPHEN 325 MG TAB PO PRN (19:14)
[2023-10-15] MEDS: SOLU-MEDROL 40MG VIAL IVP SCH (23:02)
[2023-10-16] VITALS (9 sets, daily range): BP systolic 115–124; BP diastolic 71–84; PULSE 63–111; RESP 18–20; O2SAT 93–94
[2023-10-16 04:03] LABS: HEMATOCRIT 41.8 % (42-54); MEAN CORPUSCULAR HEMOGLOBIN 30.7 pg (27.0-33.0); MEAN CORPUSCULAR HGB CONC 34.4 g/dL (32.0-36.0); MEAN CORPUSCULAR VOLUME 89.1 fL (79-99); RED BLOOD CELL COUNT(AUTO) 4.69 MIL/uL (4.50-6.20); RED CELL DISTRIBUTION WIDTH 13.1 % (11.0-15.5); WHITE BLOOD COUNT (AUTO) 14.5 K/uL (4.8-10.8)
[2023-10-16 04:23] LABS: BILIRUBIN,TOTAL 0.8 mg/dL (0.2-1.0); CREATININE 0.8 mg/dL (0.5-1.5); POTASSIUM 3.9 mmol/L (3.5-5.1); TOTAL PROTEIN, SERUM 6.5 g/dL (6.0-8.3)
[2023-10-16] MEDS ORDERED: POLYETHYLENE GLYCOL 3350 17 GM POWD.PACK PO PRN (08:30)
[2023-10-16] MEDS: PREDNISONE 20 MG TABLET PO SCH (08:33)
[2023-10-16] MEDS ORDERED: PRED10TA3 PO (13:19)
== END 2023-10-16 15:30 | disposition home or self-care (01) | DRG 871 ==
LOC: EDH 06:07 → EDHIP 06:08 → 2BH 09:58 → 4BH 10-15 16:00
PROVIDERS: ADMIT Internal Medicine; ATTEND Internal Medicine
PROC: 5A09357 Assistance with Respiratory Ventilation, Less than 24 Consecutive Hours, Continuous Positive Airway Pressure (ICD-10-PCS; principal; 2023-10-10)
PROC: 0BH17EZ Insertion of Endotracheal Airway into Trachea, Via Natural or Artificial Opening (ICD-10-PCS; 2023-10-10)
PROC: 5A1945Z Respiratory Ventilation, 24-96 Consecutive Hours (ICD-10-PCS; 2023-10-10)
PROC: 03HY32Z Insertion of Monitoring Device into Upper Artery, Percutaneous Approach (ICD-10-PCS; 2023-10-10)
PROC: 02HV33Z Insertion of Infusion Device into Superior Vena Cava, Percutaneous Approach (ICD-10-PCS; 2023-10-10)
PROC: B548ZZA Ultrasonography of Superior Vena Cava, Guidance (ICD-10-PCS; 2023-10-10)
DX: A41.9 Sepsis, unspecified organism (principal); J10.08 Influenza due to other identified influenza virus with other specified pneumonia; J96.01 Acute respiratory failure with hypoxia; J96.02 Acute respiratory failure with hypercapnia; J15.9 Unspecified bacterial pneumonia; R65.21 Severe sepsis with septic shock; K92.2 Gastrointestinal hemorrhage, unspecified; J44.0 Chronic obstructive pulmonary disease with (acute) lower respiratory infection; J44.1 Chronic obstructive pulmonary disease with (acute) exacerbation; J45.902 Unspecified asthma with status asthmaticus; J90 Pleural effusion, not elsewhere classified; J98.11 Atelectasis; Z20.822 Contact with and (suspected) exposure to COVID-19; B95.61 Methicillin susceptible Staphylococcus aureus infection as the cause of diseases classified elsewhere; E11.9 Type 2 diabetes mellitus without complications; E66.3 Overweight; E87.5 Hyperkalemia; F17.210 Nicotine dependence, cigarettes, uncomplicated; Z68.28 Body mass index [BMI] 28.0-28.9, adult; Z90.49 Acquired absence of other specified parts of digestive tract; Z79.899 Other long term (current) drug therapy; Z79.84 Long term (current) use of oral hypoglycemic drugs
CPT/HCPCS: 31500; 36415; 36600; 36620; 71045; 80048; 80053; 80305; 81001; 82306; 82435; 82803; 82947; 83605; 83735; 83880; 84100; 84132; 84295; 84484; 85014; 85018; 85025; 85027; 85378; 85610; 85730; 87071; 87077; 87186; 87205; 87449; 87635; 87804; 87880; 93971; 94002; 94003; 94150; 94640; 94660; 94664; A4344; C1894; C9113; G0378; J0456; J0610; J1650; J1815; J1940; J2060; J2250; J2270; J2354; J2370; J2405; J2543; J2920; J2930; J3010; J3475; J3480; J3490; J7050; J7070; A4600; A9900